=== PATIENT | female | born 1980 | race Hispanic/Latino ===

== ENCOUNTER 2022-02-21 16:52 | Emergency (ER) | payer OTHER ==
[~2022-02-21] VITALS: Ht 162.6 cm; Wt 90.7 kg
[2022-02-21] MEDS ORDERED: KETOROLAC TROMETHAMINE 60 MG/2 ML VIAL IM ONE (17:15)
== END 2022-02-21 19:42 | disposition home or self-care (01) ==
LOC: ER 17:00
DX: S21.131A Puncture wound without foreign body of right front wall of thorax without penetration into thoracic cavity, initial encounter (principal); R10.84 Generalized abdominal pain; M25.521 Pain in right elbow; Y04.8XXA Assault by other bodily force, initial encounter; Y92.89 Other specified places as the place of occurrence of the external cause
CPT/HCPCS: 71250; 72125; 73080; 74176; 99283; J1885